=== PATIENT | female | born 1960 | race Caucasian/White ===

== ENCOUNTER 2017-06-13 14:20 | Inpatient (IN) | payer MEDICAID, SELFPAY ==
[~2017-06-13] VITALS: Ht 165.1 cm; Wt 76.4 kg
[2017-06-13] MEDS ORDERED: SODIUM CHLORIDE FLUSH 10ML SYR IVF ONE (15:30)
[2017-06-13 15:35] LABS: BASOPHILS # (AUTO) 0.01 x10^3/uL (0-0.1); BASOPHILS % (AUTO) 0 % (0-1); EOSINOPHILS # (AUTO) 0.02 x10^3/uL (0-0.4); EOSINOPHILS % (AUTO) 0 % (1-7); LYMPHOCYTES # (AUTO) 1.53 x10^3/uL (1-3.4); LYMPHOCYTES % (AUTO) 10 % (22-44); MD NO; MEAN CORPUSCULAR HEMOGLOBIN 32.6 pg (27.0-34.8); MEAN CORPUSCULAR VOLUME 95.7 fL (80-100); MEAN PLATELET VOLUME 8.8 fL (7.4-10.4); MONOCYTES # (AUTO) 0.44 x10^3/uL (0.2-0.8); MONOCYTES % (AUTO) 3 % (2-9); NEUTROPHILS # (AUTO) 13.22 x10^3/uL (1.8-6.8); NEUTROPHILS % (AUTO) 87 % (42-75); PLATELET COUNT 218 x10^3/uL (130-400); RED BLOOD COUNT 4.39 x10^6/uL (3.82-5.3); RED CELL DISTRIBUTION WIDTH 13.2 % (9.6-15.2)
[2017-06-13 15:48] LABS: ALBUMIN 4.3 g/dL (3.4-5.0); ANION GAP 12 mmol/L (5-15); CALCIUM 9.3 mg/dL (8.5-10.1); CHLORIDE 112 mmol/L (98-107)
[2017-06-13 15:49] LABS: SALICYLATE LEVEL < 1.7 mg/dL (2.8-20.0)
[2017-06-13 15:52] LABS: ACETAMINOPHEN < 2 mcg/mL (10-30); ALANINE AMINOTRANSFERASE 25 U/L (12-78); ALKALINE PHOSPHATASE 67 U/L (45-117); BILIRUBIN,TOTAL 0.5 mg/dL (0.2-1.0); CREATININE 0.78 mg/dL (0.55-1.02); TOTAL PROTEIN 7.8 g/dL (6.4-8.2)
[2017-06-13 16:14] LABS: MICROSCOPIC INDICATED
[2017-06-13 16:25] LABS: CULTURE INDICATED? NO
[2017-06-13] MEDS ORDERED: LEVO88TA4 PO (16:33)
[2017-06-13 16:49] LABS: AMPHETAMINE SCREEN, URINE Negative (Negative); BARBITURATE SCREEN, URINE Negative (Negative); BENZODIAZEPINE SCREEN, URINE Positive (Negative); CANNABINOID SCREEN, URINE Positive (Negative); COCAINE SCREEN, URINE Negative (Negative); METHADONE SCREEN, URINE Negative (Negative); OPIATE SCREEN, URINE Negative (Negative)
[2017-06-13] MEDS ORDERED: LORazepam 2 MG/ML, 1ML IVPush ONE (17:00)
[2017-06-13] MEDS ORDERED: MORPHINE SULFATE 4 MG/ML, 1ML IVPush PRN (17:30)
[2017-06-13] MEDS ORDERED: SODIUM CHLORIDE FLUSH 10ML SYR IVF PRN (17:30)
[2017-06-13] MEDS ORDERED: ONDANSETRON ODT 4 MG PO ONE (17:30)
[2017-06-13] MEDS ORDERED: ACETAMINOPHEN 325 MG TABLET PO PRN (18:30)
[2017-06-13] MEDS ORDERED: ONDANSETRON 2MG/ML, 2ML IVPush PRN (18:30)
[2017-06-13 18:45] VITALS: BP 127/84
[2017-06-13] MEDS ORDERED: POTASSIUM CHLORIDE 20 MEQ TAB.ER.PRT PO ONE (19:00)
[2017-06-13] MEDS: KETOROLAC 30 MG/1 ML IVPush PRN (19:49)
[2017-06-13] MEDS ORDERED: TRAZODONE 50MG TABLET PO PRN (22:30)
[2017-06-13] MEDS: D5%-0.9% NACL 1,000 ML IV SCH (22:39)
[2017-06-14] MEDS ORDERED: TRAZ50TA18 PO (01:25)
[2017-06-14] MEDS ORDERED: SERT100T5 PO (01:25)
[2017-06-14 02:09] VITALS: BP 116/75
[2017-06-14] MEDS: D5%-0.9% NACL 1,000 ML IV SCH ×2 (04:37→10:24)
[2017-06-14 05:17] LABS: HCT (SEDRATE) 37.1 % (34.6-47.8)
[2017-06-14 05:23] LABS: HIGH-SENSITIVITY CRP 0.22 mg/dL (0.02-0.30)
[2017-06-14 05:55] LABS: FOLATE LEVEL > 20.0 ng/mL (3.1-17.5)
[2017-06-14 07:57] VITALS: BP 129/82
[2017-06-14] MEDS: KETOROLAC 30 MG/1 ML IVPush PRN (08:30)
[2017-06-14] MEDS ORDERED: LEVOTHYROXINE 88 MCG TABLET PO SCH (09:00)
[2017-06-14] MEDS ORDERED: SUMATRIPTAN 6MG/0.5ML SQ ONE (09:00)
[2017-06-14] MEDS ORDERED: SERTRALINE 100MG TABLET PO SCH (09:00)
[2017-06-14 13:48] VITALS: BP 129/81
[2017-06-14] MEDS ORDERED: SUMA100T3 PO (14:28)
[2017-06-15] MEDS ORDERED: LEVOTHYROXINE 88 MCG TABLET PO SCH (06:00)
== END 2017-06-14 16:47 | disposition home or self-care (01) | DRG 72 ==
LOC: ED 17:27 → EDIP 17:28 → ED 17:51 → 4WST 18:39 → 4EST 20:48 → DCLOUNGE 06-14 16:35
PROVIDERS: ADMIT Internal Medicine Pulmonary Disease; ATTEND Hospitalist
DX: G45.4 Transient global amnesia (principal); D72.829 Elevated white blood cell count, unspecified; F12.90 Cannabis use, unspecified, uncomplicated; F43.10 Post-traumatic stress disorder, unspecified; G43.109 Migraine with aura, not intractable, without status migrainosus; H53.149 Visual discomfort, unspecified; E89.0 Postprocedural hypothyroidism; Z90.710 Acquired absence of both cervix and uterus; Z87.891 Personal history of nicotine dependence; Z88.1 Allergy status to other antibiotic agents
CPT/HCPCS: 36415; 70450; 70551; 80053; 80307; 80329; 81001; 82607; 82746; 82962; 84439; 84443; 85025; 85651; 86141; 93306; 95819; 99285; J1885; J7042; G0480; J3030